=== PATIENT | male | born 1940 | race Caucasian/White ===

== ENCOUNTER 2020-05-20 15:07 | Emergency (ER) | payer MEDICARE, OTHER ==
[2020-05-20 15:26] VITALS: BP 149/80; PULSE 70
--- NOTE | 2020-05-20 16:48 | EDM.PDOC ---
ED HPI GENERAL MEDICAL PROBLEM - General Chief Complaint: General Time Seen by Provider: 05/20/20 15:30 Source of Information: Reports: Patient History Limitations: Reports: No Limitations - History of Present Illness INITIAL COMMENTS - FREE TEXT/NARRATIVE: Patient comes emergency department today from home with concerns of amnesia and a bruise to his left eye. The patient last night was watching a movie with his fiance outside of the town of [place]. He does not recall watching the rest of the movie. He then suddenly found himself driving back to [place] in the middle of the night. He does not recall getting up from the chair and leaving the house. He does not recall getting into the car and starting to drive home. He continued his drive home and when he awoke this morning he was talking to his fiance who is concerned that he had a stroke. So he comes into the emergency department about 15 hours after the episode. When he awoke this morning he had bruising around the left eye. He has no headache visual disturbances. No neck pain or back pain. No diplopia. No paresthesias or change in the functionality of his upper or lower extremities. No chest pain no shortness of breath or difficulty breathing. No palpitations syncope or weakness. No shortness of breath. No fever no chills. No COVID exposure. No cold symptoms. No abdominal pain nausea or vomiting. No hematuria dysuria or urinary frequency. No black or tarry stools. The patient is a daily 2-4 alcoholic beverage drinker who had them as he typically would last night he reports. He has never had an alcohol withdrawal seizure. He has no history of seizures. He really is without complaints today but just does not understand why he does not recall what happened last night and why he has a bruise on his eye today. Does complain of some pain to his left shoulder as well which incidentally is on the same side of the ecchymosis to his left eye. There is a bruise to his left shoulder. He has no limited range of motion. Left Shoulder Pain Score (Numeric/FACES): 5 - Related Data Allergies Allergy/AdvReac Type Severity Reaction Status Date / Time fenofibrate Allergy Cannot Verified 05/20/20 15:20 Remember latex Allergy Itching Verified 05/20/20 15:20 environmental Allergy Airway Uncoded 05/07/16 07:40 Tightness pet dander Allergy Airway Uncoded 05/07/16 07:40 Tightness Home Meds: Home Meds Ascorbic Acid [C-1000 with Lisa Hips] 1 tab PO DAILY 04/23/16 [History] Cholecalciferol (Vitamin D3) [Vitamin D3] 2,000 unit PO DAILY 04/23/16 [History] Non-Formulary Medication [NF Drug] 1 each PO DAILY 04/23/16 [History] Non-Formulary Medication [NF Drug] 1 tab PO DAILY 04/23/16 [History] Non-Formulary Medication [NF Drug] 500 mg PO DAILY 04/23/16 [History] [place]-3S/DHA/Epa/Fish Oil/D3 [[place]-3 + D Softgel] 1,000 mg PO DAILY 04/23/16 [History] Turmeric [Curcumin] 1 each PO DAILY 04/23/16 [History] Vitamin B Complex [B Complex] 1 tab PO DAILY 04/23/16 [History] Past Medical History HEENT History: Reports: None Cardiovascular History: Reports: Hypertension Respiratory History: Reports: Sleep Apnea Other Respiratory History: previously used to wear mask, but discontinued use Other Gastrointestinal History: TUBULAR ADENOMA OF COLON Genitourinary History: Reports: None Musculoskeletal History: Reports: Gout Neurological History: Reports: None Psychiatric History: Reports: None Endocrine/Metabolic History: Reports: Diabetes, Type II Hematologic History: Other Hematologic History: THROMBOCYTOPENIA. pancytopenia Oncologic (Cancer) History: Reports: None Dermatologic History: Reports: None - Past Surgical History Head Surgeries/Procedures: Reports: None HEENT Surgical History: Reports: None Cardiovascular Surgical History: Reports: None Respiratory Surgical History: Reports: None GI Surgical History: Reports: Colonoscopy Endocrine Surgical History: Reports: None Neurological Surgical History: Reports: None Musculoskeletal Surgical History: Reports: None Oncologic Surgical History: Reports: None Dermatological Surgical History: Reports: None ED ROS GENERAL - Review of Systems Review Of Systems: Comprehensive ROS is negative, except as noted in HPI. ED EXAM, GENERAL - Physical Exam Exam: See Below Exam Limited By: Altered Mental Status General Appearance: Alert, WD/WN, No Apparent Distress Eye Exam: Bilateral Eye: EOMI, PERRL Ears: Normal External Exam, Normal TMs Nose: Normal Inspection, Normal Mucosa Throat/Mouth: Normal Inspection, Normal Lips Head: Normocephalic. No: Atraumatic (The head is rather atraumatic other than ecchymosis which is circumferential around the left eye. There is minimal to no swelling just primarily ecchymosis. There is no bony deformities or subcutaneous emphysema. And extraocular movements are intact.) Neck: Normal Inspection, Supple, Non-Tender, Full Range of Motion. No: Lymphadenopathy (L), Lymphadenopathy (R), Tender Lateral, Tender Midline Respiratory/Chest: No Respiratory Distress, Lungs Clear, Normal Breath Sounds Cardiovascular: Normal Peripheral Pulses, Regular Rate, Rhythm GI/Abdominal: Normal Bowel Sounds, Soft, Non-Tender (Male) Exam: Deferred Rectal (Males) Exam: Deferred Back Exam: Normal Inspection. No: Paraspinal Tenderness, Vertebral Tenderness Extremities: Normal Range of Motion, No Pedal Edema, Normal Capillary Refill. No: Normal Inspection (His extremities are unremarkable other than a very small bruise just distal to the anterior left shoulder. There is no tenderness throughout the shoulder. There is no ecchymosis. There is no overt bony de formity. There is no laxity concerning for dislocation.) Neurological: Alert, Oriented, CN II-XII Intact, Normal Cognition, Normal Gait, No Motor/Sensory Deficits, Other (Moves all extremities strong and equal to command.) Psychiatric: Normal Affect, Normal Mood Skin Exam: Warm, Dry, Intact, Normal Color, No Rash Course - Vital Signs Last Recorded V/S: Last Vital Signs Temp 98.6 F 05/20/20 15:22 Pulse 70 05/20/20 15:22 Resp 16 05/20/20 15:22 BP 149/80 H 05/20/20 15:22 Pulse Ox 94 L 05/20/20 15:22 - Radiology Interpretation Free Text/Narrative:: CT of the head per radiology shows no acute intracranial trauma. CT maxillofacial per radiology shows left facial soft tissue swelling. Negative for acute facial bone fracture. X-ray of the left shoulder per radiology no acute findings. - Re-Assessments/Exams Free Text/Narrative Re-Assessment/Exam: 05/20/20 21:44 I am really unsure what caused this patient's amnesia of the episode last night. There is no acute intracranial findings. There is no fractures to his face. I am wondering if he did not have some type of fall where he struck his head sustained a concussion and has some amnesia from that. Especially with his alcohol intake this could be contributory as well. At this time there is no overt emergent concerns. We will discharge him home with symptomatic management for concussion any problems he is to recheck. Discharge directions as below are explained to the patient is comfortable with this plan and his questions are answered. Departure - Departure Time of Disposition: 17:27 Disposition: Home, Self-Care 01 Clinical Impression: Concussion with brief LOC Contusion of left eye Qualifiers: Encounter type: initial encounter Qualified Code(s): S05.12XA - Contusion of eyeball and orbital tissues, left eye, initial encounter Contusion of left shoulder Qualifiers: Encounter type: initial encounter Qualified Code(s): S40.012A - Contusion of left shoulder, initial encounter - Discharge Information Instructions: Concussion, Adult, [id number], How to Use Cold Therapy, [id number], Head Injury, Adult, [id number] Referrals: PCP,Unknown [Primary Care Provider] - Forms: ED Department Discharge Additional Instructions: Tylenol as needed for pain. Rest as much as possible over the next few days. Decrease stimulation to the brain from lights and sounds. Drink lots of fluids. Return to the ED if new or worsening symptoms. Follow up with PCP if any concerns or problems. Sepsis Event Note (ED) - Evaluation Sepsis Screening Result: No Definite Risk - Focused Exam Vital Signs: Vital Signs Temp Pulse Resp BP Pulse Ox 05/20/20 15:22 98.6 F 70 16 149/80 H 94 L - Assessment/Plan Assessment:: COncussion with LOC Contusion left eye. Contusion to the left shoulder. Plan: Tylenol as needed for pain. Rest as much as possible over the next few days. Decrease stimulation to the brain from lights and sounds. Drink lots of fluids. Return to the ED if new or worsening symptoms. Follow up with PCP if any concerns or problems.
--- NOTE | 2020-05-20 16:49 | CR ---
[id number] RAD/RAD Shoulder Left 2V Min EXAM: RAD Shoulder Left 2V Min INDICATION: SHOULDER PAIN AFTER FALL. COMPARISON: None. 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 No acute fracture or dislocation is identified. IMPRESSION: 1. No acute findings. Italo Abdul MD 05/20/20 1884 Thank you for allowing us to participate in the care of your patient.
--- NOTE | 2020-05-20 17:10 | CT ---
[id number] CT/CT Head WO IV EXAM: NONCONTRAST HEAD CT INDICATION: FALL. COMPARISON: None. DISCUSSION: There is mild generalized atrophy. Mild multifocal white matter hypoattenuation is nonspecific, but generally ascribed to chronic small vessel ischemia. No mass effect or midline shift. No acute hemorrhage or extra-axial fluid collection. No acute territorial infarct is identified. The facial bones and paranasal sinuses will be further detailed on a dedicated facial bone study. IMPRESSION: 1. No evidence of acute intracranial trauma. Italo Abdul MD 05/20/20 0829 Thank you for allowing us to participate in the care of your patient.
--- NOTE | 2020-05-20 17:13 | CT ---
[id number] CT/CT Facial Bones WO IV EXAM: FACIAL BONE CT WITHOUT CONTRAST INDICATION: ECCHYMOSIS AROUND LEFT EYE SOCKET. COMPARISON: None. DISCUSSION: Soft tissue swelling in the preseptal left periorbital soft tissues and left forehead. The soft tissues are otherwise unremarkable. No facial bone fracture is identified. Minor scattered paranasal sinus mucosal thickening. Moderate to advanced degenerative changes within the cervical spine. Degenerative mild spondylolisthesis C5-C6. IMPRESSION: 1. Left facial soft tissue swelling. 2. Negative for acute facial bone fracture. Italo Abdul MD 05/20/20 3079 Thank you for allowing us to participate in the care of your patient.
== END 2020-05-20 17:39 | disposition home or self-care (01) ==
LOC: VM.ED 15:07
DX: S06.0X9A Concussion with loss of consciousness of unspecified duration, initial encounter (principal); S05.12XA Contusion of eyeball and orbital tissues, left eye, initial encounter; S40.012A Contusion of left shoulder, initial encounter; I10 Essential (primary) hypertension; E11.9 Type 2 diabetes mellitus without complications; Z91.040 Latex allergy status; Z91.048 Other nonmedicinal substance allergy status; Z88.8 Allergy status to other drugs, medicaments and biological substances; X58.XXXA Exposure to other specified factors, initial encounter
CPT/HCPCS: 70450; 70486; 73030-LT; 99284-25; 99284-GF

== ENCOUNTER 2022-07-09 06:50 | Day surgery (SDC) | payer MEDICARE, OTHER ==
[2022-07-09] MEDS ORDERED: Lactated Ringers 1,000 ML IV SCH (07:00)
[2022-07-09] MEDS ORDERED: Midazolam 1 MG/ML 2 ML SDV ONE (08:07)
[2022-07-09] MEDS ORDERED: fentaNYL 100 MCG/2 ML SDV ONE (08:07)
[2022-07-09] MEDS ORDERED: Propofol 200 MG/20 ML SDV ONE (08:07)
[2022-07-09 09:23] VITALS: BP 131/65; PULSE 76
== END 2022-07-09 16:35 | disposition home or self-care (01) ==
LOC: VM.SDS 06:50
PROVIDERS: ATTEND Family Medicine
DX: Z12.11 Encounter for screening for malignant neoplasm of colon (principal); D12.2 Benign neoplasm of ascending colon; D12.3 Benign neoplasm of transverse colon; I10 Essential (primary) hypertension; G47.33 Obstructive sleep apnea (adult) (pediatric); E11.9 Type 2 diabetes mellitus without complications; R73.03 Prediabetes; D69.6 Thrombocytopenia, unspecified; I70.0 Atherosclerosis of aorta; Z91.040 Latex allergy status; Z86.010 Personal history of colon polyps; Z98.890 Other specified postprocedural states; Z79.899 Other long term (current) drug therapy; Z88.8 Allergy status to other drugs, medicaments and biological substances; Z91.048 Other nonmedicinal substance allergy status
CPT/HCPCS: 00811; 45380; 45385; 82947; J2250; J2704; J3010; J7120; 88305

== ENCOUNTER 2022-11-19 06:40 | Emergency (ER) | payer MEDICARE ==
[2022-11-19 06:57] VITALS: BP 154/86; PULSE 93
[2022-11-19 08:01] LABS: ANION GAP 13.6 mmol/L (5-15)
[2022-11-19] MEDS: methylPREDNISolone Sodium Succinate 125 MG/2 ML SDV IM ONE (08:03)
== END 2022-11-19 08:45 | disposition home or self-care (01) ==
LOC: VM.ED 06:40
DX: M10.9 Gout, unspecified (principal); I10 Essential (primary) hypertension; E11.9 Type 2 diabetes mellitus without complications; Z91.040 Latex allergy status; Z88.8 Allergy status to other drugs, medicaments and biological substances; Z91.09 Other allergy status, other than to drugs and biological substances
CPT/HCPCS: 36415; 80048; 84550; 85025; 86140; 96372; 99283; J2930

== ENCOUNTER 2023-04-10 20:11 | Emergency (ER) | payer MEDICARE ==
[2023-04-10] MEDS ORDERED: Sodium Chloride 0.9% 1,000 ML IV ONE (20:49)
[2023-04-10 20:50] LABS: BASOPHILS PERCENT AUTO 1.1 % (0.2-1.2); EOSINOPHILS ABSOLUTE AUTO 0.1 x10^3/uL (0.0-0.5); EOSINOPHILS PERCENT AUTO 1.4 % (0.0-4.0); HEMOGLOBIN 14.5 g/dL (14.0-18.0); IMMATURE GRAN ABSOLUTE AUTO 0.01 x10^3/uL (0.00-0.07); LYMPHOCYTES ABSOLUTE AUTO 2.1 x10^3/uL (1.0-4.8); LYMPHOCYTES PERCENT AUTO 58.6 % (25.0-50.0); MEAN CORPUSCULAR HEMOGLOBIN 33.8 pg (26.0-32.0); MEAN CORPUSCULAR HGB CONC 37.2 g/dL (32.0-36.0); MEAN CORPUSCULAR VOLUME 90.9 fL (78.0-93.0); MONOCYTES ABSOLUTE AUTO 0.3 x10^3/uL (0.0-0.8); MONOCYTES PERCENT AUTO 8.3 % (2.0-11.0); NEUTROPHILS ABSOLUTE AUTO 1.1 x10^3/uL (1.8-7.7); NEUTROPHILS PERCENT AUTO 30.3 % (50.0-80.0); PLATELET COUNT,PLT 116 x10^3/uL (130-400); RED BLOOD CELL COUNT 4.29 x10^6/uL (4.5-6.0); WHITE BLOOD CELL COUNT,WBC 3.5 x10^3/uL (4.0-10.0)
[2023-04-10 20:53] LABS: APPEARANCE,URINE CLEAR (CLEAR); BILIRUBIN,URINE NEGATIVE (NEGATIVE); COLOR,URINE LIGHT YELLOW (YELLOW); GLUCOSE,URINE NEGATIVE (NEGATIVE); KETONES,URINE NEGATIVE (NEGATIVE); LEUKOCYTE ESTERASE,URINE NEGATIVE (NEGATIVE); NITRITE,URINE NEGATIVE (NEGATIVE); OCCULT BLOOD,URINE NEGATIVE (NEGATIVE); PROTEIN,URINE NEGATIVE (NEGATIVE); UROBILINOGEN,URINE 0.2 EU/dL (0.2)
[2023-04-10 20:58] LABS: AMPHETAMINES SCREEN, URINE NEGATIVE (NEGATIVE); BARBITURATE SCREEN,URINE NEGATIVE (NEGATIVE); BENZODIAZEPINES SCREEN,URINE NEGATIVE (NEGATIVE); COCAINE METABOLITES,URINE NEGATIVE (NEGATIVE); METHADONE SCREEN, URINE NEGATIVE (NEGATIVE); METHAMPHETAMINE SCREEN, URINE NEGATIVE (NEGATIVE); OXYCODONE SCREEN,URINE NEGATIVE (NEGATIVE); PCP SCREEN,URINE NEGATIVE (NEGATIVE); THC SCREEN,URINE 50 NG/ML NEGATIVE (NEGATIVE)
[2023-04-10 20:59] LABS: BUPRENORPHINE SCREEN,URINE NEGATIVE (NEGATIVE)
[2023-04-10 21:12] LABS: A/G RATIO 1.11; ALANINE AMINOTRANSFERASE,ALT 48 U/L (16-63); ALBUMIN 3.9 g/dL (3.4-5.0); ALKALINE PHOSPHATASE 77 U/L (46-116); ASPARTATE AMNIOTRANSFERASE,AST 64 U/L (15-37); BILIRUBIN TOTAL 0.6 mg/dL (0.2-1.0); BLOOD UREA NITROGEN,BUN 8 mg/dL (7-18); CALCIUM 9.1 mg/dL (8.5-10.1); CARBON DIOXIDE,CO2 26 mmol/L (21-32); CHLORIDE,CL 100 mmol/L (98-107); CREATININE 0.9 mg/dL (0.70-1.30); ETHANOL BLOOD MEDICAL 245 mg/dL (0-3); GLUCOSE RANDOM 109 mg/dL (70-99); POTASSIUM,K 3.6 mmol/L (3.5-5.1); PROTEIN TOTAL,TP 7.4 g/dL (6.4-8.2); SODIUM,NA 141 mmol/L (136-145)
[2023-04-10 21:14] LABS: ACETAMINOPHEN 0 ug/ml (10-30); ANION GAP 18.6 mmol/L (5-15); C-REACTIVE PROTEIN < 0.2 mg/dL (<=0.9); ESTIMATED GFR 86 mL/min (>=60)
[2023-04-10 23:01] VITALS: PULSE 63
[2023-04-10 23:12] VITALS: BP 151/74
== END 2023-04-10 21:56 | disposition home or self-care (01) ==
LOC: VM.ED 20:11
DX: F10.129 Alcohol abuse with intoxication, unspecified (principal); I10 Essential (primary) hypertension; E11.9 Type 2 diabetes mellitus without complications; Z91.040 Latex allergy status; Z91.048 Other nonmedicinal substance allergy status; Z79.899 Other long term (current) drug therapy
CPT/HCPCS: 36415; 80053; 80143; 80179; 80305; 80307; 81003; 85025; 86140; 99284; J7030

== ENCOUNTER 2023-08-15 09:59 | Emergency (ER) | payer MEDICARE ==
[2023-08-15 10:32] LABS: BASOPHILS PERCENT AUTO 0.8 % (0.2-1.2); EOSINOPHILS PERCENT AUTO 1.1 % (0.0-4.0); HEMATOCRIT 42.3 % (40.0-52.0); HEMOGLOBIN 15.2 g/dL (14.0-18.0); LYMPHOCYTES ABSOLUTE AUTO 1.4 x10^3/uL (1.0-4.8); LYMPHOCYTES PERCENT AUTO 38.1 % (25.0-50.0); MEAN CORPUSCULAR HEMOGLOBIN 33.6 pg (26.0-32.0); MEAN CORPUSCULAR HGB CONC 35.9 g/dL (32.0-36.0); MEAN CORPUSCULAR VOLUME 93.6 fL (78.0-93.0); MONOCYTES ABSOLUTE AUTO 0.3 x10^3/uL (0.0-0.8); MONOCYTES PERCENT AUTO 9.4 % (2.0-11.0); NEUTROPHILS ABSOLUTE AUTO 1.8 x10^3/uL (1.8-7.7); NEUTROPHILS PERCENT AUTO 50.6 % (50.0-80.0); PLATELET COUNT,PLT 109 x10^3/uL (130-400); RED BLOOD CELL COUNT 4.52 x10^6/uL (4.5-6.0); WHITE BLOOD CELL COUNT,WBC 3.6 x10^3/uL (4.0-10.0)
[2023-08-15 10:41] VITALS: BP 135/85; PULSE 88
[2023-08-15 10:51] LABS: BLOOD UREA NITROGEN,BUN 9 mg/dL (7-18); C-REACTIVE PROTEIN 1.23 mg/dL (<=0.30); CALCIUM 9.1 mg/dL (8.5-10.1); CARBON DIOXIDE,CO2 30 mmol/L (21-32); CHLORIDE,CL 98 mmol/L (98-107); CREATININE 1.1 mg/dL (0.70-1.30); GLUCOSE RANDOM 136 mg/dL (70-99); POTASSIUM,K 3.2 mmol/L (3.5-5.1); SODIUM,NA 136 mmol/L (136-145); URIC ACID 8.1 mg/dL (3.5-7.2)
[2023-08-15 10:52] LABS: ANION GAP 11.2 mmol/L (5-15); ESTIMATED GFR 67 mL/min (>=60)
[2023-08-15] MEDS ORDERED: predniSONE 20 MG Tab PO ONE (10:55)
== END 2023-08-15 11:21 | disposition home or self-care (01) ==
LOC: VM.ED 09:59
DX: M10.9 Gout, unspecified (principal); I10 Essential (primary) hypertension; E11.9 Type 2 diabetes mellitus without complications; Z91.09 Other allergy status, other than to drugs and biological substances; Z88.8 Allergy status to other drugs, medicaments and biological substances
CPT/HCPCS: 36415; 80048; 84550; 85025; 86140; 99283; J7512

== ENCOUNTER 2024-02-20 09:47 | Emergency (ER) | payer OTHER, MEDICARE ==
[2024-02-20] MEDS ORDERED: Sodium Chloride 0.9% 10 ML Syringe FLUSH PRN (10:12)
[2024-02-20] MEDS: Sodium Chloride 0.9% 1,000 ML IV SCH (10:20)
[2024-02-20 10:23] LABS: BASOPHILS PERCENT AUTO 1.1 % (0.2-1.2); EOSINOPHILS PERCENT AUTO 1.1 % (0.0-4.0); HEMATOCRIT 39.9 % (40.0-52.0); HEMOGLOBIN 15.1 g/dL (14.0-18.0); LYMPHOCYTES ABSOLUTE AUTO 1.6 x10^3/uL (1.0-4.8); LYMPHOCYTES PERCENT AUTO 43.8 % (25.0-50.0); MEAN CORPUSCULAR HEMOGLOBIN 34.8 pg (26.0-32.0); MEAN CORPUSCULAR HGB CONC 37.8 g/dL (32.0-36.0); MEAN CORPUSCULAR VOLUME 91.9 fL (78.0-93.0); MONOCYTES ABSOLUTE AUTO 0.3 x10^3/uL (0.0-0.8); NEUTROPHILS ABSOLUTE AUTO 1.7 x10^3/uL (1.8-7.7); PLATELET COUNT,PLT 131 x10^3/uL (130-400); RED BLOOD CELL COUNT 4.34 x10^6/uL (4.5-6.0); WHITE BLOOD CELL COUNT,WBC 3.6 x10^3/uL (4.0-10.0)
[2024-02-20 10:43] LABS: A/G RATIO 1.06; ALANINE AMINOTRANSFERASE,ALT 42 U/L (16-63); ALBUMIN 3.7 g/dL (3.4-5.0); ALKALINE PHOSPHATASE 79 U/L (46-116); ANION GAP 17.1 mmol/L (5-15); ASPARTATE AMNIOTRANSFERASE,AST 88 U/L (15-37); BILIRUBIN TOTAL 1.3 mg/dL (0.2-1.0); BLOOD UREA NITROGEN,BUN 9 mg/dL (7-18); CALCIUM 9.3 mg/dL (8.5-10.1); CARBON DIOXIDE,CO2 27 mmol/L (21-32); CHLORIDE,CL 97 mmol/L (98-107); CREATININE 1.1 mg/dL (0.70-1.30); ESTIMATED GFR 67 mL/min (>=60); GLUCOSE RANDOM 151 mg/dL (70-99); LIPASE 30 U/L (19-71); POTASSIUM,K 3.1 mmol/L (3.5-5.1); PROTEIN TOTAL,TP 7.2 g/dL (6.4-8.2); SODIUM,NA 138 mmol/L (136-145)
[2024-02-20] MEDS: Iopamidol 612 MG/ML 100 ML Bottle IVPUSH ONE (11:34)
[2024-02-20 11:42] LABS: APPEARANCE,URINE CLEAR (CLEAR); BILIRUBIN,URINE NEGATIVE (NEGATIVE); COLOR,URINE YELLOW (YELLOW); GLUCOSE,URINE NEGATIVE (NEGATIVE); KETONES,URINE NEGATIVE (NEGATIVE); LEUKOCYTE ESTERASE,URINE SMALL (NEGATIVE); NITRITE,URINE NEGATIVE (NEGATIVE); OCCULT BLOOD,URINE NEGATIVE (NEGATIVE); PROTEIN,URINE NEGATIVE (NEGATIVE); UROBILINOGEN,URINE 0.2 EU/dL (0.2)
[2024-02-20 11:53] LABS: BACTERIA,URINE RARE /HPF (NOT SEEN); RBC,URINE 0-5 /HPF (NOT SEEN); SQUAMOUS EPITHELIAL CELLS,UR RARE /HPF (NOT SEEN); WBC,URINE 0-5 /HPF (NOT SEEN)
[2024-02-20 12:44] VITALS: BP 121/78; PULSE 78
== END 2024-02-20 12:56 | disposition home or self-care (01) ==
LOC: VM.ED 09:47
DX: K40.90 Unilateral inguinal hernia, without obstruction or gangrene, not specified as recurrent (principal); I10 Essential (primary) hypertension; E11.9 Type 2 diabetes mellitus without complications; Z88.8 Allergy status to other drugs, medicaments and biological substances; Z91.040 Latex allergy status; Z91.048 Other nonmedicinal substance allergy status; Z79.899 Other long term (current) drug therapy; Z87.891 Personal history of nicotine dependence
CPT/HCPCS: 74177; 80053; 81001; 83690; 85025; 96360; 96361; 99284; J7030; Q9967

== ENCOUNTER 2024-02-21 19:03 | Emergency (ER) | payer OTHER, MEDICARE ==
[2024-02-21] MEDS: Take Home: Ciprofloxacin 500 MG Tab, 2 Tab Pack PO ONE (20:20)
[2024-02-21] MEDS: Take Home: Acetaminophen/HYDROcodone 325-5 MG, 5 Tab Pack PO ONE (20:20)
[2024-02-23 02:02] VITALS: BP 140/80; PULSE 67
== END 2024-02-21 20:24 | disposition home or self-care (01) ==
LOC: VM.ED 19:03
DX: K40.90 Unilateral inguinal hernia, without obstruction or gangrene, not specified as recurrent (principal); N41.9 Inflammatory disease of prostate, unspecified; R33.9 Retention of urine, unspecified; I10 Essential (primary) hypertension; E11.9 Type 2 diabetes mellitus without complications; Z91.040 Latex allergy status; Z91.09 Other allergy status, other than to drugs and biological substances; Z91.048 Other nonmedicinal substance allergy status; Z88.8 Allergy status to other drugs, medicaments and biological substances; Z79.899 Other long term (current) drug therapy
CPT/HCPCS: 51702; 99283; A9270-GY

== ENCOUNTER 2024-02-22 13:10 | Observation (INO) | payer OTHER, MEDICARE ==
[2024-02-22] MEDS ORDERED: Sodium Chloride 0.9% 10 ML Syringe FLUSH PRN (13:23)
[2024-02-22] MEDS ORDERED: Ondansetron 4 MG/2 ML SDV IV PRN (13:24)
[2024-02-22] MEDS ORDERED: HYDROmorphone 0.5 MG/0.5 ML Syringe IVPUSH PRN (13:24)
[2024-02-22] MEDS: Lactated Ringers 1,000 ML IV SCH (14:18)
[2024-02-22] MEDS: Potassium Chloride 10 MEQ Tab.ER PO ONE (14:23)
[2024-02-22] MEDS ORDERED: Flumazenil 0.1 MG/ML 5 ML MDV IVPUSH PRN (14:33)
[2024-02-22] MEDS ORDERED: LORazepam 2 MG/ML SDV IVPUSH PRN (14:33)
[2024-02-22] MEDS: Bisacodyl 10 MG Supp RECTAL ONE (15:36)
[2024-02-22] MEDS: Ciprofloxacin in D5W 400 MG in Premix Bag 1 BAG IV ONE (15:37)
[2024-02-22] MEDS: Multivitamin Tab PO SCH (15:41)
[2024-02-22] MEDS: Thiamine 100 MG Tab PO SCH (15:41)
[2024-02-22] MEDS: Folic Acid 1 MG Tab PO SCH (15:41)
[2024-02-22] MEDS: Lactulose Soln 10 GM/15 ML 30 ML UD Cup PO ONE ×2 (16:14→16:24)
[2024-02-22] MEDS: Albuterol/Ipratropium 3.0-0.5 MG/3 ML Neb Soln NEB SCH (17:07)
[2024-02-22] MEDS: Tamsulosin 0.4 MG Cap.ER PO SCH (17:08)
[2024-02-22] MEDS: Magnesium Sulfate/Water 2 GM in Premix Bag 1 BAG IV ONE (17:10)
[2024-02-22] MEDS: Potassium Chloride 10 MEQ Tab.ER PO SCH (17:10)
[2024-02-22] MEDS: Ciprofloxacin in D5W 400 MG in Premix Bag 1 BAG IV SCH (22:26)
[2024-02-22] MEDS: Magnesium Oxide 400 MG Tab PO SCH (22:26)
[2024-02-23 06:12] VITALS: BP 133/71; PULSE 78
[2024-02-23 07:01] LABS: BASOPHILS PERCENT AUTO 0.5 % (0.2-1.2); EOSINOPHILS PERCENT AUTO 0.2 % (0.0-4.0); HEMATOCRIT 36.3 % (40.0-52.0); HEMOGLOBIN 13.5 g/dL (14.0-18.0); IMMATURE GRAN ABSOLUTE AUTO 0.01 x10^3/uL (0.00-0.07); LYMPHOCYTES ABSOLUTE AUTO 1.4 x10^3/uL (1.0-4.8); MEAN CORPUSCULAR HGB CONC 37.2 g/dL (32.0-36.0); MONOCYTES ABSOLUTE AUTO 0.3 x10^3/uL (0.0-0.8); MONOCYTES PERCENT AUTO 7.2 % (2.0-11.0); NEUTROPHILS ABSOLUTE AUTO 2.3 x10^3/uL (1.8-7.7); NEUTROPHILS PERCENT AUTO 56.9 % (50.0-80.0); PLATELET COUNT,PLT 101 x10^3/uL (130-400); RED BLOOD CELL COUNT 3.86 x10^6/uL (4.5-6.0)
[2024-02-23 07:40] LABS: ALBUMIN 3.2 g/dL (3.4-5.0); BILIRUBIN TOTAL 1.1 mg/dL (0.2-1.0); CALCIUM 8.7 mg/dL (8.5-10.1); CREATININE 0.9 mg/dL (0.70-1.30); EST CRCL DRUG DOSING (CG) 50.93 mL/min; PROTEIN TOTAL,TP 6.4 g/dL (6.4-8.2)
[2024-02-23 07:48] LABS: ANION GAP 12.5 mmol/L (5-15); POTASSIUM,K 2.5 mmol/L (3.5-5.1)
[2024-02-23] MEDS: Potassium Chloride 10 MEQ Tab.ER PO SCH (08:19)
[2024-02-23] MEDS ORDERED: Polyethylene Glycol 3350 Powder 17 GM Packet PO SCH (09:00)
[2024-02-23] MEDS ORDERED: amLODIPine 5 MG Tab PO SCH (09:00)
== END 2024-02-23 08:35 | disposition home or self-care (01) ==
LOC: VM.MS 13:10
PROVIDERS: ADMIT Internal Medicine; ATTEND Internal Medicine
DX: K40.90 Unilateral inguinal hernia, without obstruction or gangrene, not specified as recurrent (principal); E86.0 Dehydration; K59.00 Constipation, unspecified; E87.20 Acidosis, unspecified; I10 Essential (primary) hypertension; E87.6 Hypokalemia; E83.42 Hypomagnesemia; N40.1 Benign prostatic hyperplasia with lower urinary tract symptoms; R33.9 Retention of urine, unspecified; F05 Delirium due to known physiological condition; G31.84 Mild cognitive impairment of uncertain or unknown etiology; Z91.040 Latex allergy status; J30.81 Allergic rhinitis due to animal (cat) (dog) hair and dander; Z91.09 Other allergy status, other than to drugs and biological substances; Z88.8 Allergy status to other drugs, medicaments and biological substances; Z98.890 Other specified postprocedural states
CPT/HCPCS: 36415; 74018; 80053; 80307; 82140; 82947; 83605; 85025; 93005; 94640; 96361; 96365; 96366; 96367; 97161-GP; A9270-GY; G0378; J0744; J3475; J7120; J7620-GY

== ENCOUNTER 2024-10-13 12:19 | Observation (INO) | payer MEDICARE, OTHER ==
[2024-10-13] MEDS ORDERED: Sodium Chloride 0.9% 10 ML Syringe FLUSH PRN (12:38)
[2024-10-13] MEDS ORDERED: Potassium Chloride 20 MEQ Tab.ER PO SCH (12:45)
[2024-10-13] MEDS: Potassium Chloride 20 MEQ Tab.ER PO SCH (13:08)
[2024-10-13] MEDS: Lactated Ringers 1,000 ML IV SCH (13:10)
[2024-10-13] MEDS: Potassium Chloride Riders 20 MEQ in Premix Bag 1 BAG IV ONE (13:32)
[2024-10-13 16:34] LABS: ALBUMIN 3.5 g/dL (3.4-5.0); CALCIUM 9.6 mg/dL (8.5-10.1); CREATININE 1.1 mg/dL (0.70-1.30); EST CRCL DRUG DOSING (CG) 48.41 mL/min; PHOSPHORUS 2.8 mg/dL (2.6-4.7); POTASSIUM,K 3.3 mmol/L (3.5-5.1)
[2024-10-13 17:56] VITALS: BP 153/95; PULSE 87
== END 2024-10-13 18:30 | disposition home or self-care (01) ==
LOC: VM.MS 12:19
PROVIDERS: ADMIT Internal Medicine; ATTEND Internal Medicine
DX: E87.6 Hypokalemia (principal); I10 Essential (primary) hypertension; D69.6 Thrombocytopenia, unspecified; E11.9 Type 2 diabetes mellitus without complications; I35.0 Nonrheumatic aortic (valve) stenosis; E87.1 Hypo-osmolality and hyponatremia; G47.33 Obstructive sleep apnea (adult) (pediatric); W19.XXXA Unspecified fall, initial encounter
CPT/HCPCS: 36415; 70450; 80069; 96361; 96365; 97165-GO; 97530-GO; A9270-GY; G0378; J3480; J7120

== ENCOUNTER 2024-11-24 09:27 | Emergency (ER) | payer MEDICARE ==
[2024-11-24 09:40] VITALS: BP 134/64; PULSE 73
[2024-11-24 09:57] LABS: BASOPHILS PERCENT AUTO 0.9 % (0.2-1.2); EOSINOPHILS PERCENT AUTO 1.8 % (0.0-4.0); HEMATOCRIT 33.9 % (40.0-52.0); LYMPHOCYTES ABSOLUTE AUTO 0.8 x10^3/uL (1.0-4.8); LYMPHOCYTES PERCENT AUTO 32.9 % (25.0-50.0); MEAN CORPUSCULAR HEMOGLOBIN 34.5 pg (26.0-32.0); MEAN CORPUSCULAR HGB CONC 35.4 g/dL (32.0-36.0); MEAN CORPUSCULAR VOLUME 97.4 fL (78.0-93.0); MONOCYTES ABSOLUTE AUTO 0.2 x10^3/uL (0.0-0.8); MONOCYTES PERCENT AUTO 10.5 % (2.0-11.0); NEUTROPHILS ABSOLUTE AUTO 1.2 x10^3/uL (1.8-7.7); NEUTROPHILS PERCENT AUTO 53.9 % (50.0-80.0); PLATELET COUNT,PLT 100 x10^3/uL (130-400); RED BLOOD CELL COUNT 3.48 x10^6/uL (4.5-6.0)
[2024-11-24 10:04] LABS: WHITE BLOOD CELL COUNT,WBC 2.3 x10^3/uL (4.0-10.0)
[2024-11-24 10:20] LABS: A/G RATIO 1.03; ALANINE AMINOTRANSFERASE,ALT 47 U/L (16-63); ALBUMIN 3.2 g/dL (3.4-5.0); ALKALINE PHOSPHATASE 89 U/L (46-116); ASPARTATE AMNIOTRANSFERASE,AST 76 U/L (15-37); BILIRUBIN TOTAL 0.9 mg/dL (0.2-1.0); BLOOD UREA NITROGEN,BUN 8 mg/dL (7-18); CALCIUM 8.8 mg/dL (8.5-10.1); CARBON DIOXIDE,CO2 26 mmol/L (21-32); CHLORIDE,CL 100 mmol/L (98-107); CREATININE 0.9 mg/dL (0.70-1.30); GLUCOSE RANDOM 117 mg/dL (70-99); POTASSIUM,K 3.8 mmol/L (3.5-5.1); PRO B-TYPE NATRIUR PEPT,BNPPRO 318 pg/mL (<=450); PROTEIN TOTAL,TP 6.3 g/dL (6.4-8.2); SODIUM,NA 139 mmol/L (136-145)
[2024-11-24 10:23] LABS: ANION GAP 16.8 mmol/L (5-15); ESTIMATED GFR 85 mL/min (>=60)
== END 2024-11-24 11:13 | disposition home or self-care (01) ==
LOC: VM.ED 09:27
DX: R60.0 Localized edema (principal); I10 Essential (primary) hypertension; E11.9 Type 2 diabetes mellitus without complications; Z88.8 Allergy status to other drugs, medicaments and biological substances; Z87.891 Personal history of nicotine dependence; Z91.040 Latex allergy status; Z91.048 Other nonmedicinal substance allergy status; Z79.899 Other long term (current) drug therapy
CPT/HCPCS: 36415; 80053; 80307; 83880; 85025; 99284

== ENCOUNTER 2025-05-06 19:36 | Emergency (ER) | payer MEDICARE ==
[2025-05-06 19:51] VITALS: BP 154/87; PULSE 88
[2025-05-06] MEDS: Take Home: Amoxicillin/Clavulanate K 875-125 MG Tab, 2 Tab Pack PO ONE (19:57)
== END 2025-05-06 20:00 | disposition home or self-care (01) ==
LOC: SUPCPDRO 19:36 → VM.ED 19:36
DX: L03.113 Cellulitis of right upper limb (principal); E78.00 Pure hypercholesterolemia, unspecified; I10 Essential (primary) hypertension; E11.9 Type 2 diabetes mellitus without complications; Z91.040 Latex allergy status; Z91.048 Other nonmedicinal substance allergy status; Z88.8 Allergy status to other drugs, medicaments and biological substances; Z79.899 Other long term (current) drug therapy
CPT/HCPCS: 99283; A9270-GY